=== PATIENT | female | born 1975 | race Caucasian/White ===

== ENCOUNTER 2018-11-24 15:55 | Observation (INO) ==
--- NOTE | 2018-11-24 16:51 | ED ---
HPI General Chief complaint: Chest Pain Stated complaint: Chest Pain Time Seen by Provider: 11/24/18 16:20 Source: patient Mode of arrival: ambulatory Limitations: no limitations History of Present Illness HPI narrative: Patient is a 43 year old female who comes in complaining of substernal chest pain that radiates to the right side of her chest and to her back. She says it started last night and has been constant since then. She reports some shortness of breath, but denies nausea or vomiting. She denies fever, chills, cough or cold. She denies any leg pain or swelling. She is concerned because her sister at 43 of an ID. She has not taken anything for her pain. Severity is moderate. Related Data Home Medications Medication Instructions Recorded Confirmed No Known Home Medications 11/24/18 11/24/18 Allergies Allergy/AdvReac Type Severity Reaction Status Date / Time No Known Allergies Allergy Verified 11/24/18 16:17 Review of Systems ROS: all other systems reviewed are negative Constitutional Denies chills and Denies fever(s) ENT Denies dizziness Cardiovascular Reports chest pain and Reports dyspnea Respiratory Denies cough Gastrointestinal Denies abdominal pain, Denies nausea and Denies vomiting Musculoskeletal Denies myalgias and Denies arthralgias Integumentary/Breasts Denies sores and Denies wounds Neurologic Denies focal weakness and Denies numbness [facility] Medical History Medical History Patient denies medical problems (Acute) Surgical History Surgical History H/O sinus surgery (Acute) H/O tubal ligation (Acute) Social History Social History Substance History: No History of Abuse Smoking Status: Current every day smoker Tobacco Type: Cigarettes How Often Do You Have a Drink Containing Alcohol: Never Recent Travel in [facility] within the Last 8 Weeks: No Recent Out of Country Travel within the Last 8 Weeks: No Immunization History Tetanus Immunization: <5 Years Exam Narrative Exam Narrative: GENERAL: Awake and alert, in no acute distress. SKIN: Focused skin assessment warm/dry. HEAD: Atraumatic. Normocephalic. EYES: Pupils equal and round. No scleral icterus. No injection or drainage. ENT: No nasal bleeding or discharge. Mucous membranes pink and moist. NECK: Trachea midline. No JVD. CARDIOVASCULAR: Regular rate and rhythm. No murmur appreciated. RESPIRATORY: No accessory muscle use. Clear to auscultation. Breath sounds equal bilaterally. GASTROINTESTINAL: Abdomen soft, non-tender, nondistended. MUSCULOSKELETAL: No obvious deformities. No clubbing. No cyanosis. No edema. NEUROLOGICAL: Awake and alert. No obvious cranial nerve deficits. Motor grossly within normal limits. Normal speech. PSYCHIATRIC: Appropriate mood and affect; insight and judgment normal. Course Initial Documented Vital Signs Pulse Rate 89 11/24/18 16:14 Respiratory Rate 16 11/24/18 16:14 Blood Pressure 141/73 H 11/24/18 16:14 Pulse Oximetry 100 11/24/18 16:14 Last Documented Vital Signs Pulse Rate 93 H 11/24/18 16:30 Respiratory Rate 14 11/24/18 16:30 Blood Pressure 128/81 11/24/18 16:30 Pulse Oximetry 99 11/24/18 16:30 Medical Decision Making [facility] Narrative Medical decision making narrative: Patient is a 43 year old female who comes in complaining of chest pain. Exam shows no acute abnormalities. IV established, labs sent, connected to the secured entrance monitor. Given Aspirin. Labs show no acute abnormalities. CXR shows no acute abnormalities. Patient to be placed in chest pain center for further management. Medical Screen Exam Complete: Yes Emergency Medical Condition: Yes Differential Diagnosis Differential Diagnosis: ACS vs NSTEMI vs STEMI Medical Records Medical records reviewed: Yes I reviewed the patient's medical records. Lab Data Lab results reviewed: Yes I reviewed the patient's lab results. Result diagrams: 11/24/18 16:45 11/24/18 16:45 Lab Results 11/24/18 11/24/18 11/24/18 Range/Units 16:45 16:45 16:45 WBC 5.8 (4.0-11.0) th/mm3 RBC 3.63 L (4.00-5.30) mil/mm3 Hgb 11.7 (11.6-15.3) gm/dL Hct 34.3 L (35.0-46.0) % MCV 94.4 (80.0-100.0) fL MCH 32.2 (27.0-34.0) pg MCHC 34.1 (32.0-36.0) % RDW 14.8 (11.6-17.2) % Plt Count 309 (150-450) th/mm3 MPV 8.9 (7.0-11.0) fL Neut % (Auto) 54.5 (16.0-70.0) % Lymph % (Auto) 30.6 (9.0-44.0) % Bryan % (Auto) 10.8 H (0.0-8.0) % Eos % (Auto) 2.9 (0.0-4.0) % Baso % (Auto) 1.2 (0.0-2.0) % Neut # (Auto) 3.2 (1.8-7.7) th/mm3 Lymph # (Auto) 1.8 (1.0-4.8) th/mm3 [place] # (Auto) 0.6 (0.0-0.9) th/mm3 Eos # (Auto) 0.2 (0.0-0.4) th/mm3 Baso # (Auto) 0.1 (0.0-0.2) th/mm3 WBC Differential . Differential Comment Auto diff final PT 10.7 (9.8-11.6) sec INR 1.1 Ratio APTT 27.2 (23.4-31.7) sec D-Dimer Quant (PE/DVT) 0.22 (0.00-0.50) mg/L FEU Sodium 143 (136-145) meq/L Potassium 3.4 L (3.5-5.1) meq/L Chloride 108 H (98-107) meq/L Carbon Dioxide 27.4 (21.0-32.0) meq/L Anion Gap 8 (5-15) meq/L BUN 11 (7-18) mg/dL Creatinine 0.97 (0.50-1.00) mg/dL Estimated GFR 63 L (>89) mL/min Random Glucose 74 (74-106) mg/dL Calcium 8.9 (8.5-10.1) mg/dL Total Bilirubin 0.4 (0.2-1.0) mg/dL AST 18 (15-37) U/L ALT 23 (10-53) U/L Alkaline Phosphatase 40 L (45-117) U/L Total Creatine Kinase 114 (26-192) U/L CK-MB (CK-2) 1.4 (0.5-3.6) ng/mL Troponin I Less than 0.02 L (0.02-0.05) ng/mL Total Protein 7.5 (6.4-8.2) g/dL Albumin 3.9 (3.4-5.0) g/dL Lipase 132 (73-393) U/L Imaging Data Radiologist's impression: Chest X-Ray 11/24/18 16:32 CONCLUSION: The lungs are clear. ECG Data EKG Prior to Arrival: No Attestation: I personally reviewed and interpreted this ECG as follows: Interpretation: EG shows NSR at a rate of 83, no ST elevation or depression Discharge Plan Discharge Disposition Patient Disposition: ED Admit(ED Internal Use Only) Discharge Condition Condition: Stable Discharge Order Discharge Orders: ED Use Only Admit Order (Routine); Ordered 11/24/18 Ordered By: Concepcion Gabriel Discharge Details Diagnosis: Atypical chest pain Physicians Team ED Provider: Concepcion Gabriel Primary Care Provider: Primary Care Lesli Guaman Attending Provider: Evette Paz Discharge Interventions Interventions: Vital Signs Last Done: 11/24/18 16:30 Status ED Status: Admitted Observation Patient
--- NOTE | 2018-11-24 16:59 | XR ---
EXAM DATE: 11/24/2018 4:52 PM EST AGE/SEX: 43 years / Female INDICATIONS: Left sided chest pain. CLINICAL DATA: This is the patient's initial encounter. Patient reports that signs and symptoms have been present for 2 days and indicates a pain score of 7/10. MEDICAL/SURGICAL HISTORY: None. None. COMPARISON: No prior exams available for comparison. FINDINGS: A single AP view of the chest demonstrates the lungs to be symmetrically aerated without evidence of mass, infiltrate or effusion. The cardiomediastinal contours are unremarkable. Osseous structures a re intact. CONCLUSION: The lungs are clear. Electronically signed by: Ankit Jarquin MD Board Certified Radiologist 11/24/2018 4:58 PM EST
[2018-11-24 17:03] LABS: Baso # (Auto) 0.1 th/mm3 (0.0-0.2); Baso % (Auto) 1.2 % (0.0-2.0); Eos # (Auto) 0.2 th/mm3 (0.0-0.4); Eos % (Auto) 2.9 % (0.0-4.0); Hematocrit 34.3 % (35.0-46.0); Hemoglobin 11.7 gm/dL (11.6-15.3); Lymph # (Auto) 1.8 th/mm3 (1.0-4.8); Lymph % (Auto) 30.6 % (9.0-44.0); Mean Corpuscular HGB Conc 34.1 % (32.0-36.0); Mean Corpuscular Hemoglobin 32.2 pg (27.0-34.0); Mean Corpuscular Volume 94.4 fL (80.0-100.0); Mean Platelet Volume 8.9 fL (7.0-11.0); Mono # (Auto) 0.6 th/mm3 (0.0-0.9); Mono % (Auto) 10.8 % (0.0-8.0); Neut # (Auto) 3.2 th/mm3 (1.8-7.7); Neut % (Auto) 54.5 % (16.0-70.0); Platelet Count 309 th/mm3 (150-450); Red Blood Count 3.63 mil/mm3 (4.00-5.30); Red Cell Distribution Width 14.8 % (11.6-17.2); White Blood Count 5.8 th/mm3 (4.0-11.0)
[2018-11-24 17:15] LABS: Activated Partial Thrombo Time 27.2 sec (23.4-31.7); INR 1.1 Ratio; Prothrombin Time 10.7 sec (9.8-11.6)
[2018-11-24 17:17] LABS: D-Dimer 0.22 mg/L FEU (0.00-0.50)
[2018-11-24 17:25] LABS: Albumin 3.9 g/dL (3.4-5.0); Anion Gap 8 meq/L (5-15); Aspartate Aminotransferase 18 U/L (15-37); Blood Urea Nitrogen 11 mg/dL (7-18); Calcium 8.9 mg/dL (8.5-10.1); Carbon Dioxide 27.4 meq/L (21.0-32.0); Chloride 108 meq/L (98-107); Glomerular Filtration Rate 63 mL/min (>89); Glucose,Random 74 mg/dL (74-106); Lipase 132 U/L (73-393); Potassium 3.4 meq/L (3.5-5.1); Sodium 143 meq/L (136-145)
[2018-11-24 17:26] LABS: Alanine Aminotransferase 23 U/L (10-53)
[2018-11-24 17:30] LABS: Alkaline Phosphatase 40 U/L (45-117); Creatine Kinase 114 U/L (26-192); Total Protein 7.5 g/dL (6.4-8.2)
[2018-11-24 17:43] LABS: Creatine Kinase MB 1.4 ng/mL (0.5-3.6)
[2018-11-24 21:41] LABS: Creatine Kinase 91 U/L (26-192)
[2018-11-25 00:05] LABS: Creatine Kinase 81 U/L (26-192)
[2018-11-25 04:00] VITALS: RESP 16; O2SAT 99
[2018-11-25 08:22] VITALS: BP 105/59; TEMP 97.7
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
--- NOTE | 2018-11-25 09:33 | P.PNCA ---
Subjective Interval history: Very pleasant 43-year-old woman seen by nurse practitioner presented and then seen and examined personally. She has an atypical presentation for cardiac disease but does have some significant risk factors and that she is a smoker and has a strong family history. She is currently pain-free and capable of walking with a normal resting EKG. Since she has ruled out for ACS using standard chest pain center protocol she will be evaluated further with an exercise stress test. Medications and Allergies Active Medications: Active Medications Sodium Chloride (Ns Flush) 2 ml IV.FLUSH UNSCH PRN PRN Reason: FLUSH AFTER USING IV ACCESS Sodium Chloride (Ns Flush) 2 ml IV.FLUSH BID SENA Last Admin: 11/24/18 20:36 Dose: 2 ml Sodium Chloride (Ns Flush) 2 ml IV.FLUSH PRN PRN PRN Reason: FLUSH AFTER USING IV ACCESS Allergies Allergy/AdvReac Type Severity Reaction Status Date / Time No Known Allergies Allergy Verified 11/24/18 16:17 Home Medications Medication Instructions Recorded Confirmed Type No Known Home Medications 11/24/18 11/24/18 History Physical Exam Vital signs: Vital Signs 11/24/18 16:14 11/24/18 16:30 11/24/18 19:00 Temperature Pulse Rate 89 93 H 72 Respiratory Rate 16 14 16 Blood Pressure 141/73 H 128/81 94/59 L Pulse Oximetry 100 99 99 11/24/18 20:00 11/24/18 20:27 11/24/18 23:45 Temperature 98.4 F 98.1 F Pulse Rate 68 75 68 Respiratory Rate 18 18 Blood Pressure 112/61 99/51 L Pulse Oximetry 99 98 11/25/18 00:15 11/25/18 03:58 11/25/18 04:14 Temperature 98.0 F Pulse Rate 66 70 71 Respiratory Rate 16 Blood Pressure 90/53 L Pulse Oximetry 99 11/25/18 08:00 Temperature 97.7 F Pulse Rate 70 Respiratory Rate 16 Blood Pressure 105/59 L Pulse Oximetry 99 Intake & Output 11/24/18 11/25/18 11/25/18 18:59 06:59 18:59 Intake Total 240 / 240 Balance 240 / 240 Weight 55.792 kg 55.792 kg Intake: Oral 240 / 240 Other: # Voids 2 Date of Last Bowel Movement 11/24/18 Weight On Admission 55.792 kg Narrative: Well-nourished well-developed lady in no acute distress Skin warm and dry normal texture and turgor Head normocephalic atraumatic Eyes PERRLA EOMI sclera clear Mouth mucous membranes moist and well papillated no lesions Neck supple no JVD masses nodes or bruits Chest significantly diminished breath sounds but no rales wheezes or rhonchi Cardiovascular PMI is not displaced the rhythm is regular there are no gallops rubs or murmurs Abdomen soft nontender no guarding or rebound Extremity no clubbing cyanosis or edema Results 11/24/18 16:45 11/24/18 16:45 Cardiac Enzymes 11/24/18 11/24/18 11/24/18 Range/Units 16:45 20:18 23:15 AST 18 (15-37) U/L CK-MB (CK-2) 1.4 (0.5-3.6) ng/mL Troponin I Less than 0.02 L Less than 0.02 L Less than 0.02 L (0.02-0.05) ng/mL Coagulation 11/24/18 Range/Units 16:45 PT 10.7 (9.8-11.6) sec APTT 27.2 (23.4-31.7) sec CBC 11/24/18 Range/Units 16:45 WBC 5.8 (4.0-11.0) th/mm3 RBC 3.63 L (4.00-5.30) mil/mm3 Hgb 11.7 (11.6-15.3) gm/dL Hct 34.3 L (35.0-46.0) % Plt Count 309 (150-450) th/mm3 Neut # (Auto) 3.2 (1.8-7.7) th/mm3 Lymph # (Auto) 1.8 (1.0-4.8) th/mm3 [place] # (Auto) 0.6 (0.0-0.9) th/mm3 Eos # (Auto) 0.2 (0.0-0.4) th/mm3 Baso # (Auto) 0.1 (0.0-0.2) th/mm3 Comprehensive Metabolic Panel 11/24/18 Range/Units 16:45 Sodium 143 (136-145) meq/L Potassium 3.4 L (3.5-5.1) meq/L Chloride 108 H (98-107) meq/L Carbon Dioxide 27.4 (21.0-32.0) meq/L BUN 11 (7-18) mg/dL Creatinine 0.97 (0.50-1.00) mg/dL Calcium 8.9 (8.5-10.1) mg/dL AST 18 (15-37) U/L ALT 23 (10-53) U/L Alkaline Phosphatase 40 L (45-117) U/L Total Protein 7.5 (6.4-8.2) g/dL Albumin 3.9 (3.4-5.0) g/dL Intake and Output 11/24/18 11/25/18 11/25/18 22:59 06:59 14:59 Intake Total 240 / 240 Balance 240 / 240 Intake: Oral 240 / 240 Other: # Voids 2 Date of Last Bowel Movement 11/24/18 Weight 55.792 kg Weight On Admission 55.792 kg - Imaging and Cardiology Imaging: Impressions Chest X-Ray 11/24/18 16:32 CONCLUSION: The lungs are clear. Assessment and Plan - Assessment (1) Atypical chest pain Code(s): R07.89 - Other chest pain Status: Acute Plan: Admitted to chest pain center. Monitor on telemetry overnight. ACS has been ruled out with 3 sets of EKGs. Will be seen and evaluated by Dr. Eliel Gaytan. Presentation atypical for cardiac etiology, however due to early onset cardiovascular disease in sister discussed proceeding with an exercise stress test would be reasonable. Further cardiac testing will be determined after evaluation by food stand manager. Patient agreeable to plan of care and verbalized understanding. Addendum patient was seen and evaluated personally after discussion with the nurse practitioner she will be further evaluated with an exercise stress test. If this proves to be negative as expected she will be discharged further follow- up on an outpatient basis. If positive further evaluation with nuclear scan will be entertained at this time. She was also specifically directed in regards to cessation of her cigarette smoking and alteration of lifestyle and risk factors. (2) Tobacco abuse Code(s): Z72.0 - Tobacco use Status: Chronic Plan: Strongly encouraged and stressed the importance of tobacco cessation. Instructed to quit smoking. Tobacco Free [place] program contact information will be provided in discharge instructions.
--- NOTE | 2018-11-25 10:09 | ECG ---
Date Performed: 11/24/2018 Time Performed: 20:00:01 PTAGE: 43 years EKG: Sinus rhythm NORMAL ECG PREVIOUS TRACING : 11/24/2018 16.37 DOCTOR: Eliel Gaytan Interpretating Date/Time 11/25/2018 10:07:31
--- NOTE | 2018-11-25 10:10 | ECG ---
Date Performed: 11/24/2018 Time Performed: 16:37:01 PTAGE: 43 years EKG: Sinus rhythm POSSIBLE RIGHT VENTRICULAR CONDUCTION DELAY BORDERLINE ECG No change NO PREVIOUS TRACING DOCTOR: Eliel Gaytan Interpretating Date/Time 11/25/2018 10:09:10
--- NOTE | 2018-11-25 10:13 | ECG ---
Date Performed: 11/24/2018 Time Performed: 23:38:44 PTAGE: 43 years EKG: Sinus rhythm WITH SINUS ARRHYTHMIA POSSIBLE RIGHT VENTRICULAR CONDUCTION DELAY BORDERLINE ECG No significant de la torre ge PREVIOUS TRACING : 11/24/2018 20.00 DOCTOR: Eliel Gaytan Interpretating Date/Time 11/25/2018 10:12:05
[2018-11-25 11:20] VITALS: PULSE 63
--- NOTE | 2018-11-26 12:35 | TR ---
Date Performed: 11/25/2018 Time Performed: 09:57:36 DOCTOR: Eliel Gaytan DRUG LIST: CLINICAL HISTORY: CHEST PAIN REASON FOR TEST: REASON FOR ENDING: OBSERVATION: CONCLUSION: Marques protocol completed. Stopped sec to exceeding target heart rate and leg fatigue . Maximum CY=194 Max HR Achieved=99.0% Maximum [place]=514/60 Total Exercise Time=10:01. No reprod chest p ain. Great exercise tolerance. No ectopy. No st t segment changes. Normal bp response. Recovery quick and unremarkable. COMMENTS: Low probability of significant ischemic heart disease as cause of current presentation
== END 2018-11-25 10:44 | disposition home or self-care (01) ==
LOC: NEDA 15:55 → NEPE 15:55 → NEPGCP 19:20
PROVIDERS: ADMIT Internal Medicine Interventional Cardiology; ATTEND Internal Medicine Interventional Cardiology
DX: F17.210 Nicotine dependence, cigarettes, uncomplicated; R07.89 Other chest pain; R06.00 Dyspnea, unspecified
CPT/HCPCS: 71010; 71045; 80053; 82550; 82552; 83690; 84484; 85025; 85379; 85610; 85730; 93005; 93017; 99285; G0378